=== PATIENT | female | born 1995 | race Caucasian/White ===

== ENCOUNTER → 2019-02-09 | Outpatient (CLI) | payer SELFPAY ==
--- NOTE | 2019-02-09 15:18 | RADIOLOGY REPORT (SQ) ---
EXAM DESCRIPTION: U/S OB 14+ TRNABD 1GES W/O DOP COMPLETED DATE/TIME: 02/09/2019 1:58 pm REASON FOR STUDY: Z34.02 ENCNTR FOR SUPRVSN OF NORMAL FIRST PREG, SECOND TRIMESTER Z34.02 ENCNTR FO R SUPRVSN OF NORMAL FIRST PREG, SECOND TRIME COMPARISON: None. TECHNIQUE: Static and Dynamic grayscale imaging performed of gravid uterus using transabdominal appr oach. Additional selected color Doppler and spectral images recorded. All stored on PACS. LIMITATIONS: None. FINDINGS: FETUSES SEEN:1 EGA: 26 weeks 4 days Calculated using BPD,FL,HC,AC documented on images. No discrepancy with clinica l dates. ILAN: 05/14/2019 EFW: 916 grams +/-136 grams PERCENTILE: 66% LUIZA: 5.6 cm x 11.4 cm(LVP) PLACENTA: Anterior. PRESENTATION: Cephalic. ANATOMY: HEART RATE: 152 beats per minute. FOUR CHAMBER HEART: Visualized. THREE VESSEL CORD: Yes. CORD INSERTION: Visualized. KIDNEYS AND BLADDER: Visualized. Appear normal. STOMACH: Visualized. Appears normal. SPINE: Normal as visualized. BRAIN AND LATERAL VENTRICLES: Visualized. Appear normal. OTHER: No other significant finding. MATERNAL ADNEXA: Maternal ovaries not visualized. CERVICAL LENGTH: 3.6 cm. Closed. OTHER: No other significant finding. IMPRESSION: LIVING INTRAUTERINE . ESTIMATED GESTATIONAL AGE: 26 weeks 4 days NO VISUALIZED ANOMALIES. Trimester of : Third trimester - 28 weeks to delivery. TECHNICAL DOCUMENTATION: JOB ID: [id number] [employer]- All Rights Reserved Reading location - IP/workstation name: [email or web address]
== END ==
LOC: RAD 12:42
PROVIDERS: ATTEND Midwife
DX: Z34.02 Encounter for supervision of normal first pregnancy, second trimester (principal)
CPT/HCPCS: 76805

== ENCOUNTER 2019-06-01 10:35 | Outpatient (CLI) | payer MEDICAID ==
--- NOTE | 2019-06-01 12:10 | Non Stress Test Report ---
Non Stress Test Datetime Report Generated by CPN: 06/01/2019 12:09 DEMOGRAPHIC EGA NST: 40.6 INDICATION Indication for Study (NST) Other: POST DATES VITAL SIGNS Temperature - NST: 98.3 Pulse - NST: 79 RESP - NST: 18 NBPSYS NST: 101 NBPDIA NST: 64 MONITORING Monitor Explained: Monitor Explained; Test Explained; Patient Verbalized Understanding Time on Monitor: 06/01/2019 10:45 Time off Monitor: 06/01/2019 11:31 NST Duration: 46 NST INTERVENTIONS NST Interventions: PO Hydration; Reposition Patient Physician Notified NST: K LEWIS, CNM BABY A: [id number] BABY A Movement : Present Contraction Frequency : 3.5-5.5 FHR Baseline : 125 Accelerations : 15X15 Decelerations : None Variability : Moderate 6-25bpm NST Review: Meets Criteria for Reactive NST NST Review and Verified By : Sylvester Monreal RN NST Results: Reactive NST REPORT Report Trigger: Send Report
== END 2019-06-01 11:36 | disposition home or self-care (01) ==
LOC: LC 10:35
PROVIDERS: ATTEND Obstetrics & Gynecology
PROC: 4A1HXCZ Monitoring of Products of Conception, Cardiac Rate, External Approach (ICD-10-PCS; principal; 2019-06-01)
DX: O48.0 Post-term pregnancy (principal); Z3A.40 40 weeks gestation of pregnancy
CPT/HCPCS: 59025

== ENCOUNTER 2019-06-01 19:32 | Inpatient (IN) | payer MEDICAID ==
[2019-06-01] MEDS ORDERED: RINGERS SOLUTION,LACTATED 1,000 ML IV PRN (19:47)
[2019-06-01] MEDS ORDERED: OXYTOCIN/NORMAL SALINE 20 UNIT/1,000 ML RTUINJ IV PRN (19:47)
[2019-06-01] MEDS ORDERED: RINGERS SOLUTION,LACTATED 300 ML IV ONE (19:47)
[2019-06-01] MEDS ORDERED: DINOPROSTONE 10 MG VAGINAL INSERT.SR PV PRN (19:47)
[2019-06-01] MEDS ORDERED: DINOPROSTONE 10 MG VAGINAL INSERT.SR ONE (20:18)
[2019-06-01 20:41] LABS: ABSOLUTE BASOPHILS # (AUTO) 0.1 10^3/uL (0.0-0.2); ABSOLUTE EOSINOPHILS # (AUTO) 0.1 10^3/uL (0.0-0.6); ABSOLUTE LYMPHOCYTES (AUTO) 1.7 10^3/uL (0.5-4.7); ABSOLUTE MONOCYTES (AUTO) 0.7 10^3/uL (0.1-1.4); ABSOLUTE NEUT (AUTO) 5.3 10^3/uL (1.7-8.2); BASOPHILS % (AUTO) 0.6 % (0-2); EOSINOPHILS % (AUTO) 1.3 % (0-6); HEMATOCRIT 36.7 % (36.0-47.0); HEMOGLOBIN 13.2 g/dL (12.0-15.5); LYMPHOCYTES % (AUTO) 21.9 % (13-45); MEAN CORPUSCULAR HEMOGLOBIN 33.7 pg (27.0-33.4); MEAN CORPUSCULAR VOLUME 94 fl (80-97); MONOCYTES % (AUTO) 8.6 % (3-13); PLATELET COUNT 239 10^3/uL (150-450); RED BLOOD COUNT 3.93 10^6/uL (3.72-5.28); SEGMENTED NEUTROPHILS % (AUTO) 67.6 % (42-78); TOTAL CELLS COUNTED % (AUTO) 100 %; WHITE BLOOD COUNT 7.8 10^3/uL (4.0-10.5)
[2019-06-01 20:46] LABS: APPEARANCE,URINE CLEAR; BILIRUBIN,URINE NEGATIVE (NEGATIVE); COLOR,URINE STRAW; GLUCOSE, URINE NEGATIVE (NEGATIVE); KETONES,URINE NEGATIVE (NEGATIVE); LEUKOCYTE ESTERASE,URINE SMALL (NEGATIVE); NITRITE,URINE NEGATIVE (NEGATIVE); PROTEIN,URINE NEGATIVE (NEGATIVE); URINE SPECIFIC GRAVITY 1.005; UROBILINOGEN,URINE NEGATIVE mg/dL (<2.0)
[2019-06-01] MEDS ORDERED: OXYTOCIN/NORMAL SALINE 20 UNIT/1,000 ML RTUINJ ONE (20:55)
[2019-06-01] MEDS ORDERED: OXYTOCIN 10 UNIT/ML VIAL ONE (20:55)
[2019-06-01] MEDS ORDERED: LIDOCAINE 1% INJ-PF (10 MG/ML) 30 ML SDV ONE (20:55)
[2019-06-01] MEDS ORDERED: MISOPROSTOL 0.2 MG TABLET ONE (20:55)
[2019-06-01 21:04] LABS: URINE AMPHETAMINES SCREEN NEGATIVE; URINE BARBITURATES SCREEN NEGATIVE; URINE BENZODIAZEPINES SCREEN NEGATIVE; URINE COCAINE SCREEN NEGATIVE; URINE MARIJUANA (THC) SCREEN NEGATIVE; URINE METHADONE SCREEN NEGATIVE; URINE PHENCYCLIDINE SCREEN NEGATIVE
--- NOTE | 2019-06-02 07:10 | Admission Physical ---
Datetime Report Generated by CPN: 06/02/2019 07:10 CURRENT ADMISSION Chief Complaint: Scheduled Induction of Labor Indication for Induction: Post Dates Admit Impression : Term, Intrauterine ; Induction of Labor Admit Plan: Admit to Unit; Initiate Labor Induction Protocol ALLERGIES Medication Allergies: No Medication Allergies: No Known Allergies (06/01/2019) Latex: No Latex Allergies OBSTETRICAL HISTORY EDC: 05/26/2019 00:00 : 1 Para: 0 Cesareans: 0 Gestational Diabetes: No Rh Sensitization: No Incompetent Cervix: No MARLIN: No Infertility: No ART Treatment: No Uterine Anomaly: No IUGR: No Hx Previous C/S: No Macrosomia: No Hx Loss/Stillborn: No PIH: No Hx : No Placenta Previa/Abruption: No Depression/PP Depression: Yes PTL/PROM: No Post Hemorrhage: No Current Procedures: Ultrasound; NST Obstetrical History Comments: G1- current SEE RECORDS Alcohol: No Marijuana : No Cocaine: No Other Illicit Drugs: No Cigarettes: Former Smoker. [id number] MEDICAL HISTORY Diabetes: No Blood Transfusion: No Pulmonary Disease (Asthma, TB): No Breast Disease: No Hypertension: No Pleater Surgery: No Heart Disease: No Hosp/Surgery: No Autoimmune Disorder: No Anesthetic Complications: No Kidney Disease: Yes Abnormal Pap Smear: No Neuro/Epilepsy: No Psychiatric Disorders: No Other Medical Diseases: No Hepatitis/Liver Disease: No Significant Family History: No Varicosities/Phlebitis: No Trauma/Violence : No Thyroid Dysfunction: No Medical History Comments: UTI in childhood, anxiety INFECTIOUS HISTORY Gonorrhea: No Genital Herpes: No Chlamydia: No Tuberculosis: No Syphilis: No Hepatitis: No HIV/AIDS Exposure: No Rash or Viral Illness: No HPV: No PHYSICAL EXAM General: Normal HEENT: Normal Neurologic: Normal Thyroid: Normal Heart: Normal Lungs: Normal Breast: Normal Back: Normal Abdomen: Normal Genitourinary Exam: Normal Extremities: Normal DTRs: Normal Pelvic Type: Adequate Vital Signs: Reviewed; Within Normal Limits VAGINAL EXAM Dilatation: 0 Effacement: 0 Station: -3 FETUS A EGA: 41.0 Monitoring: External US FHR- Baseline: 130 Variability: Moderate 6-25bpm Accelerations: 15X15 Decelerations: None FHR Category: Category I Estimated Weight (gm): 3700 Presentation: Vertex PLANS FOR LABOR AND DELIVERY Labor and Delivery: None Pain Management: Medications Feeding Preference: Breast Benefit of Breast Feed Discussed: Yes Circumcision: N/A INFORMED CONSENT Signature: with User ID: [email or web address]
[2019-06-02] MEDS ORDERED: OXYTOCIN/NORMAL SALINE 20 UNIT/1,000 ML RTUINJ IV PRN (10:14)
[2019-06-02] MEDS ORDERED: FENTANYL/BUPIVACAINE/NS/PF 300 MCG/150 ML RTUINJ EPI ONE (22:56)
[2019-06-02] MEDS ORDERED: EPHEDRINE SULFATE INJ 50 MG/1 ML AMPULE ONE (22:56)
[2019-06-02] MEDS ORDERED: BUPIVACAINE HCL 0.25 % INJ/PF (2.5 MG/1 ML) 30 ML VIAL ONE (22:57)
[2019-06-03] MEDS ORDERED: MEASLES,MUMPS&RUBELLA VACC/PF 0.5 ML VIAL SUBCUT PRN (04:18)
[2019-06-03] MEDS ORDERED: ZOLPIDEM TARTRATE 5 MG TABLET PO PRN (04:18)
[2019-06-03] MEDS ORDERED: PROMETHAZINE HCL 25 MG SUPP.RECT PR PRN (04:18)
[2019-06-03] MEDS ORDERED: DIPH/PERTUSS(ACELL)/TETANUS VAC/PF 0.5 ML SYR (>=10YO) IM PRN (04:18)
[2019-06-03] MEDS ORDERED: ACETAMINOPHEN 650 MG SUPP.RECT PR PRN (04:18)
[2019-06-03] MEDS ORDERED: GLYCERIN/WITCH HAZEL LEAF 1 EACH MED..WIPE TP PRN (04:18)
[2019-06-03] MEDS ORDERED: PROMETHAZINE HCL 25 MG TABLET PO PRN (04:18)
[2019-06-03] MEDS ORDERED: PSEUDOEPHEDRINE HCL 30 MG TABLET PO PRN (04:18)
[2019-06-03] MEDS ORDERED: DIBUCAINE 1% OINTMENT 28 GM TP PRN (04:18)
[2019-06-03] MEDS ORDERED: PROMETHAZINE HCL INJ 25 MG/1 ML VIAL IV PRN (04:18)
[2019-06-03] MEDS ORDERED: MAGNESIUM HYDROXIDE SUSP 30 ML UDCUP PO PRN (04:18)
[2019-06-03] MEDS ORDERED: DIPHENHYDRAMINE HCL 25 MG CAPSULE PO PRN (04:18)
[2019-06-03] MEDS ORDERED: OXYTOCIN/NORMAL SALINE 20 UNIT/1,000 ML RTUINJ IV PRN (04:18)
[2019-06-03] MEDS ORDERED: ACETAMINOPHEN WITH CODEINE #3 TABLET PO PRN ×2 (04:18)
[2019-06-03] MEDS ORDERED: NA PHOS,M-B/NA PHOS,DI-BA (ADULT) 133 ML ENEMA PR PRN (04:18)
[2019-06-03] MEDS ORDERED: BENZOCAINE/MENTHOL AEROSOL SPRAY 56 ML ONE (04:51)
[2019-06-03] MEDS ORDERED: IBUPROFEN 800 MG TABLET ONE (05:18)
[2019-06-03] MEDS: BENZOCAINE/MENTHOL AEROSOL SPRAY 56 ML TOP PRN (05:20)
[2019-06-03] MEDS: IBUPROFEN 800 MG TABLET PO SCH ×3 (05:21→21:37)
[2019-06-03] MEDS ORDERED: FAMOTIDINE 20 MG TABLET ONE (09:19)
[2019-06-03] MEDS ORDERED: PRENATAL VITAMIN W DHA CAPSULE PO ONE (09:19)
[2019-06-03] MEDS ORDERED: SENNOSIDES/DOCUSATE 8.6-50 MG 1 EACH TABLET ONE (09:19)
[2019-06-03] MEDS ORDERED: DOCUSATE SODIUM 100 MG CAPSULE ONE (09:20)
[2019-06-03] MEDS ORDERED: FERROUS SULFATE 325 MG TABLET PO ONE (09:20)
[2019-06-03] MEDS: PRENATAL VITAMIN W DHA CAPSULE PO SCH (09:21)
[2019-06-03] MEDS: SENNOSIDES/DOCUSATE 8.6-50 MG 1 EACH TABLET PO SCH (09:21)
[2019-06-03] MEDS: DOCUSATE SODIUM 100 MG CAPSULE PO SCH ×2 (09:22→17:23)
[2019-06-03] MEDS: FERROUS SULFATE 325 MG TABLET PO SCH ×2 (09:22→17:23)
[2019-06-03] MEDS: FAMOTIDINE 20 MG TABLET PO SCH ×2 (09:22→21:37)
[2019-06-04] MEDS: IBUPROFEN 800 MG TABLET PO SCH ×3 (05:07→21:39)
[2019-06-04 06:47] LABS: HEMATOCRIT 29.7 % (36.0-47.0); MEAN CORPUSCULAR HEMOGLOBIN 33.7 pg (27.0-33.4); MEAN CORPUSCULAR HGB CONC 35.8 g/dL (32.0-36.0); MEAN CORPUSCULAR VOLUME 94 fl (80-97); PLATELET COUNT 152 10^3/uL (150-450); RED BLOOD COUNT 3.16 10^6/uL (3.72-5.28); WHITE BLOOD COUNT 9.4 10^3/uL (4.0-10.5)
[2019-06-04 06:49] LABS: HEMOGLOBIN 10.6 g/dL (12.0-15.5)
[2019-06-04] MEDS: FAMOTIDINE 20 MG TABLET PO SCH ×2 (09:34→21:40)
[2019-06-04] MEDS: FERROUS SULFATE 325 MG TABLET PO SCH ×2 (09:34→17:56)
[2019-06-04] MEDS: SENNOSIDES/DOCUSATE 8.6-50 MG 1 EACH TABLET PO SCH (09:34)
[2019-06-04] MEDS: PRENATAL VITAMIN W DHA CAPSULE PO SCH (09:35)
[2019-06-04] MEDS: DOCUSATE SODIUM 100 MG CAPSULE PO SCH ×2 (09:35→17:56)
--- NOTE | 2019-06-04 11:31 | PDOC PROGRESS REPORT ---
Subjective-OB Progress Note for:: 06/04/19 - PP day #1, doing well, O+, rubella Immune, Physical Exam (OB) Vital Signs: Temp Pulse Resp BP Pulse Ox 97.6 F 75 16 105/54 L 99 06/04/19 07:49 06/04/19 07:49 06/04/19 07:49 06/04/19 07:49 06/04/19 07:49 Intake & Output 06/03/19 06/04/19 06/05/19 06:59 06:59 06:59 Intake Total 480 Balance 480 - General General Appearance: Appears well, Alert In distress: None - Lochia Lochia Amount: Scant < 10 ml Lochia Color: Rubra/Red - Abdomen Description: Soft Fundal Description: Firm, Midline Fundal Height: u/u - u/2 - Respiratory Respiratory Status: No respiratory distress - Abdominal Inspection: Normal Distension: No distension Tenderness: Nontender - Genitourinary Genitourinary Note: voiding - Psychological Associated symptoms: Normal affect, Normal mood - Skin Skin Temperature: Warm Skin Moisture: Dry Objective-Diagnostic Laboratory: 06/04/19 06:32 06/04/19 06:32 WBC 9.4 RBC 3.16 L Hgb 10.6 L D Hct 29.7 L MCV 94 MCH 33.7 H MCHC 35.8 RDW 14.0 Plt Count 152 Assessment and Plan(PN) - Assessment and Plan (1) (normal spontaneous vaginal delivery) Is this a current diagnosis for this admission?: Yes - Time Spent with Patient Time with patient: Less than 15 minutes Medications reviewed and adjusted accordingly: Yes - Disposition Anticipated Discharge: Home Within: within 24 hours
[2019-06-05] MEDS: IBUPROFEN 800 MG TABLET PO SCH ×2 (06:52→13:58)
--- NOTE | 2019-06-05 10:22 | PDOC DISCHARGE SUMMARY ---
Impression - Admit/DC Date/PCP Admission Date/Primary Care Provider: 06/01/19 19:32 JORGITO LARA MD Discharge Date: 06/05/19 - PP Day #2, doing well, O+. Rubella Immune, - Discharge Diagnosis (1) (normal spontaneous vaginal delivery) Is this a current diagnosis for this admission?: Yes - Additional Information Resuscitation Status: Full Code Discharge Diet: As Tolerated, Regular Discharge Activity: Activity As Tolerated, No Lifting Over 10 Pounds, Pelvic Rest Referrals: JORGITO LARA MD [Primary Care Provider] - Prescriptions: Ibuprofen [Motrin 800 mg Tablet] 800 mg PO Q8 #60 tablet Home Medications: Ferrous Sulfate [Feosol 325 mg Tablet] 1 tab PO DAILY 06/01/19 No122/Iron/Folic Acid [ Multi Tablet] 1 tab PO DAILY 06/01/19 Ibuprofen [Motrin 800 mg Tablet] 800 mg PO Q8 #60 tablet 06/05/19 HPI Reason(s) for Admission: Onset of Labor Procedures: Ultrasound Intrapartum Procedure(s): Spontaneous Vaginal Delivery Complication(s): Laceration-Perineal Laceration-Degree: 1st Results Laboratory Results: WBC 9.4 10^3/uL (4.0-10.5) 06/04/19 06:32 RBC 3.16 10^6/uL (3.72-5.28) L 06/04/19 06:32 Hgb 10.6 g/dL (12.0-15.5) L D 06/04/19 06:32 Hct 29.7 % (36.0-47.0) L 06/04/19 06:32 MCV 94 fl (80-97) 06/04/19 06:32 MCH 33.7 pg (27.0-33.4) H 06/04/19 06:32 MCHC 35.8 g/dL (32.0-36.0) 06/04/19 06:32 RDW 14.0 % (11.5-14.0) 06/04/19 06:32 Plt Count 152 10^3/uL (150-450) 06/04/19 06:32 Lymph % (Auto) 21.9 % (13-45) 06/01/19 20:12 [place] % (Auto) 8.6 % (3-13) 02/11/20 20:12 Eos % (Auto) 1.3 % (0-6) 06/01/19 20:12 Baso % (Auto) 0.6 % (0-2) 06/01/19 20:12 Absolute Neuts (auto) 5.3 10^3/uL (1.7-8.2) 06/01/19 20:12 Absolute Lymphs (auto) 1.7 10^3/uL (0.5-4.7) 06/01/19 20:12 Absolute Monos (auto) 0.7 10^3/uL (0.1-1.4) 06/01/19 20:12 Absolute Eos (auto) 0.1 10^3/uL (0.0-0.6) 06/01/19 20:12 Absolute Basos (auto) 0.1 10^3/uL (0.0-0.2) 06/01/19 20:12 Seg Neutrophils % 67.6 % (42-78) 06/01/19 20:12 Urine Color STRAW 06/01/19 19:55 Urine Appearance CLEAR 06/01/19 19:55 Urine pH 7.0 (5.0-9.0) 06/01/19 19:55 Ur Specific [place] 1.005 06/01/19 19:55 Urine Protein NEGATIVE mg/dL (NEGATIVE) 06/01/19 19:55 Urine Glucose (UA) NEGATIVE mg/dL (NEGATIVE) 06/01/19 19:55 Urine Ketones NEGATIVE mg/dL (NEGATIVE) 06/01/19 19:55 Urine Blood NEGATIVE (NEGATIVE) 06/01/19 19:55 Urine Nitrite NEGATIVE (NEGATIVE) 06/01/19 19:55 Urine Bilirubin NEGATIVE (NEGATIVE) 06/01/19 19:55 Urine Urobilinogen NEGATIVE mg/dL (<2.0) 06/01/19 19:55 Ur Leukocyte Esterase SMALL (NEGATIVE) H 06/01/19 19:55 Urine Ascorbic Acid 20 (NEGATIVE) H 06/01/19 19:55 Urine Opiates Screen NEGATIVE 06/01/19 19:55 Urine Methadone Screen NEGATIVE 06/01/19 19:55 Ur Barbiturates Screen NEGATIVE 06/01/19 19:55 Ur Phencyclidine Scrn NEGATIVE 06/01/19 19:55 Ur Amphetamines Screen NEGATIVE 06/01/19 19:55 U Benzodiazepines Scrn NEGATIVE 06/01/19 19:55 Urine Cocaine Screen NEGATIVE 06/01/19 19:55 U Marijuana (THC) Screen NEGATIVE 06/01/19 19:55 RPR NONREACTIVE (NONREACTIVE) 06/01/19 20:12 Blood Type O POSITIVE 06/01/19 20:12 Antibody Screen NEGATIVE 06/01/19 20:12 Plan Plan of Treatment: d/c home, f/up with [facility] in 4 wks Time Spent: Less than 30 Minutes
[2019-06-05] MEDS: PRENATAL VITAMIN W DHA CAPSULE PO SCH (10:23)
[2019-06-05] MEDS: FERROUS SULFATE 325 MG TABLET PO SCH (10:23)
[2019-06-05] MEDS: SENNOSIDES/DOCUSATE 8.6-50 MG 1 EACH TABLET PO SCH (10:23)
[2019-06-05] MEDS: DOCUSATE SODIUM 100 MG CAPSULE PO SCH (10:23)
[2019-06-05] MEDS: FAMOTIDINE 20 MG TABLET PO SCH (10:24)
[2019-06-05 12:58] VITALS: BP 121/78
[2019-06-05] MEDS: BENZOCAINE/MENTHOL AEROSOL SPRAY 56 ML TOP PRN (14:04)
--- NOTE | 2019-06-08 13:12 | Delivery Summary ---
Del Sum A-C Datetime Report Generated by CPN: 06/08/2019 13:11 DELIVERY PERSONNEL DELIVERY PERSONNEL: [id number] Delivery Doctor:: Sandhya Woodard MD Labor and Delivery Nurse:: Fartun Bond RNroad mender Nurse:: Ciaran Bell RN Board Saw Runner:: Kezia Koo RN Automotive Finance Manager/SAFEMAKER: Eva Ross, ST MATERNAL INFORMATION Delivery Anesthesia: Epidural Medications After Delivery: Pitocin Bolus-Please Comment; Pitocin Drip 20 Units/1000ml NSS Meds After Delivery Comment: Pitocin 20 Units/1000 ml NSS Delivery QBL: 150 Delivery QBL Comment: del 150 rec 78 total 228 Maternal Complications: None Provider Comments: Called to patients room with her pushing. She delivered a viable female . The head delivered BA and then a nuchal x1 was noted. It was too tight to reduce and decision was made to deliver through. The shoulders and rest of the body delivered easily. vigorous at delivery. Cord clamping delayed for 30 seconds. After cord doubly cut and clamped the infant was placed skin to skin with Mother. BOth stable condition. LABOR SUMMARY EDC: 05/26/2019 00:00 No. Babies in Womb: 1 Attempted: No Labor Anesthesia: Epidural LABOR INFORMATION Reason for Induction: Post Dates Onset of Labor: 06/02/2019 22:47 Complete Dilatation: 06/03/2019 02:11 Cervical Ripening Agents: Cervidil Oxytocin: Induction Group B Beta Strep: negative Antibiotics # of Doses: 0 Steroids Given: None Reason Steroids Not Administered: Not Applicable MEMBRANES Membranes Rupture Method: Spontaneous Rupture of Membranes: 06/02/2019 22:47 Length of Rupture (hr): 5.00 Amniotic Fluid Color: Clear Amniotic Fluid Amount: Small Amniotic Fluid Odor: Normal STAGES OF LABOR Stage 1 hr: 3 Stage 1 min: 24 Stage 2 hr: 1 Stage 2 min: 36 Stage 3 hr: 0 Stage 3 min: 5 Total Time in Labor hr: 5 Total Time in Labor min: 5 VAGINAL DELIVERY Episiotomy: None Laceration #1: Perineal Laceration Extension #1: First Degree Other Laceration: bilateral labial lacerations which were 1st degrees Laceration Repair: Yes Laceration Repair Note: Repairs done with 3-0 chromic in a running fashion Sponge Count Correct: Yes Sharps Count Correct: Yes CSECTION DELIVERY Primary Indication: N/A Secondary Indication: N/A CSection Incidence: N/A Labor: N/A Elective: N/A CSection Incision: N/A BABY A INFORMATION Infant Delivery Date/Time: 06/03/2019 03:47 Method of Delivery: Vaginal Method of Delivery: Vaginal Nurse Controlled Delivery: No Born in Route : No : N/A Forceps: N/A Vacuum Extraction: N/A Shoulder Dystocia : No PRESENTATION/POSITION BABY A Presentation: Cephalic Cephalic Presentation: Vertex Vertex Position: Left Occipital Anterior Breech Presentation: N/A PLACENTA INFORMATION BABY A Placenta Delivery Time : 06/03/2019 03:52 Placenta Method of Delivery: Spontaneous Placenta Method of Delivery: Spontaneous Placenta Status: Delivered SCORES BABY A Heart Rate 1 min: >100 bpm Resp Effort 1 min: Good Cry Reflex Irritability 1 min: Cough or Sneeze or Pulls Away Muscle Tone 1 min: Active Motion Color 1 min: Blue/Pale Resuscitation Effort 1 min: Tactile Stimulation SCORE 1 MIN: 8 Heart Rate 5 min: >100 bpm Resp Effort 5 min: Good Cry Reflex Irritability 5 min: Cough or Sneeze or Pulls Away Muscle Tone 5 min: Active Motion Color 5 min: Body [place], Extremities Blue Resuscitation Effort 5 min: Tactile Stimulation SCORE 5 MIN: 9 INFANT INFORMATION BABY A Gestational Age at Delivery: 41.1 Gestational Status: Late Term- 41- 41.6 Weeks Outcome : Liveborn Infant Condition : Stable Infant Sex: Female Infant Sex: Female IDENTIFICATION BABY A Infant Verification Date/Time: 06/03/2019 04:09 ID Band Number: [id number] Mother's Name Verified: Yes RN Verifying : Raghavendra Bell, RN Additional Verifying Personnel: S NAVA Bond WEIGHT/LENGTH BABY A Infant Birthweight (gm): 3759 Infant Weight (lb): 8 Weight (oz): 5 Length (in): 21.50 Infant Length (cm): 54.61 CORD INFORMATION BABY A No. Cord Vessels: 3 Nuchal Cord : Around Neck x1, Tight Cord Blood Taken: Yes-For Eval (Mom's Blood Type - or O+) Infant Suction: Mouth ASSESSMENT BABY A Infant Complications: Multiple Variable Decels Physical Findings at Delivery: Caput Succedaneum Infant Respirations: Appears Normal Skin to Skin: Yes Skin to Skin Time (min): 60 University Professor/ALS Called : No Infant Care By: NAVA Morales Transferred To: Remains with Mother BABY B INFORMATION : N/A SIGNATURES Signature: with User ID: [email or web address] : with User ID: [email or web address]
--- NOTE | 2019-06-08 14:55 | Delivery Summary ---
Del Sum A-C Datetime Report Generated by CPN: 06/08/2019 14:54 DELIVERY PERSONNEL DELIVERY PERSONNEL: [id number] Delivery Doctor:: Sandhya Woodard MD Labor and Delivery Nurse:: Fartun Bond RNdigital technician Nurse:: Ciaran Bell RN Rolls Baker:: Kezia Koo RN Die Repairer Stamping/ACTING TEACHER: Eva Ross, ST MATERNAL INFORMATION Delivery Anesthesia: Epidural Medications After Delivery: Pitocin Bolus-Please Comment; Pitocin Drip 20 Units/1000ml NSS Meds After Delivery Comment: Pitocin 20 Units/1000 ml NSS Delivery QBL: 150 Delivery QBL Comment: del 150 rec 78 total 228 Maternal Complications: None Provider Comments: Called to patients room with her pushing. She delivered a viable female . The head delivered BA and then a nuchal x1 was noted. It was too tight to reduce and decision was made to deliver through. The shoulders and rest of the body delivered easily. vigorous at delivery. Cord clamping delayed for 30 seconds. After cord doubly cut and clamped the infant was placed skin to skin with Mother. BOth stable condition. LABOR SUMMARY EDC: 05/26/2019 00:00 No. Babies in Womb: 1 Attempted: No Labor Anesthesia: Epidural LABOR INFORMATION Reason for Induction: Post Dates Onset of Labor: 06/02/2019 22:47 Complete Dilatation: 06/03/2019 02:11 Cervical Ripening Agents: Cervidil Oxytocin: Induction Group B Beta Strep: negative Antibiotics # of Doses: 0 Steroids Given: None Reason Steroids Not Administered: Not Applicable MEMBRANES Membranes Rupture Method: Spontaneous Rupture of Membranes: 06/02/2019 22:47 Length of Rupture (hr): 5.00 Amniotic Fluid Color: Clear Amniotic Fluid Amount: Small Amniotic Fluid Odor: Normal STAGES OF LABOR Stage 1 hr: 3 Stage 1 min: 24 Stage 2 hr: 1 Stage 2 min: 36 Stage 3 hr: 0 Stage 3 min: 5 Total Time in Labor hr: 5 Total Time in Labor min: 5 VAGINAL DELIVERY Episiotomy: None Laceration #1: Perineal Laceration Extension #1: First Degree Other Laceration: bilateral labial lacerations which were 1st degrees Laceration Repair: Yes Laceration Repair Note: Repairs done with 3-0 chromic in a running fashion Sponge Count Correct: Yes Sharps Count Correct: Yes CSECTION DELIVERY Primary Indication: N/A Secondary Indication: N/A CSection Incidence: N/A Labor: N/A Elective: N/A CSection Incision: N/A BABY A INFORMATION Infant Delivery Date/Time: 06/03/2019 03:47 Method of Delivery: Vaginal Method of Delivery: Vaginal Nurse Controlled Delivery: No Born in Route : No : N/A Forceps: N/A Vacuum Extraction: N/A Shoulder Dystocia : No PRESENTATION/POSITION BABY A Presentation: Cephalic Cephalic Presentation: Vertex Vertex Position: Left Occipital Anterior Breech Presentation: N/A PLACENTA INFORMATION BABY A Placenta Delivery Time : 06/03/2019 03:52 Placenta Method of Delivery: Spontaneous Placenta Method of Delivery: Spontaneous Placenta Status: Delivered SCORES BABY A Heart Rate 1 min: >100 bpm Resp Effort 1 min: Good Cry Reflex Irritability 1 min: Cough or Sneeze or Pulls Away Muscle Tone 1 min: Active Motion Color 1 min: Blue/Pale Resuscitation Effort 1 min: Tactile Stimulation SCORE 1 MIN: 8 Heart Rate 5 min: >100 bpm Resp Effort 5 min: Good Cry Reflex Irritability 5 min: Cough or Sneeze or Pulls Away Muscle Tone 5 min: Active Motion Color 5 min: Body [place], Extremities Blue Resuscitation Effort 5 min: Tactile Stimulation SCORE 5 MIN: 9 INFANT INFORMATION BABY A Gestational Age at Delivery: 41.1 Gestational Status: Late Term- 41- 41.6 Weeks Outcome : Liveborn Infant Condition : Stable Infant Sex: Female Infant Sex: Female IDENTIFICATION BABY A Infant Verification Date/Time: 06/03/2019 04:09 ID Band Number: [id number] Mother's Name Verified: Yes RN Verifying : Raghavendra Bell, RN Additional Verifying Personnel: S NAVA Bond WEIGHT/LENGTH BABY A Infant Birthweight (gm): 3759 Infant Weight (lb): 8 Weight (oz): 5 Length (in): 21.50 Infant Length (cm): 54.61 CORD INFORMATION BABY A No. Cord Vessels: 3 Nuchal Cord : Around Neck x1, Tight Cord Blood Taken: Yes-For Eval (Mom's Blood Type - or O+) Infant Suction: Mouth ASSESSMENT BABY A Infant Complications: Multiple Variable Decels Physical Findings at Delivery: Caput Succedaneum Infant Respirations: Appears Normal Skin to Skin: Yes Skin to Skin Time (min): 60 Telecom Coordinator/ALS Called : No Infant Care By: NAVA Morales Transferred To: Remains with Mother BABY B INFORMATION : N/A SIGNATURES Signature: with User ID: [email or web address] : with User ID: [email or web address]
== END 2019-06-05 14:20 | disposition home or self-care (01) | DRG 807 ==
LOC: LR 19:32 → 2S 06-03 11:29
PROVIDERS: ADMIT Obstetrics & Gynecology; ATTEND Obstetrics & Gynecology
PROC: 10E0XZZ Delivery of Products of Conception, External Approach (ICD-10-PCS; principal; 2019-06-03)
PROC: 0HQ9XZZ Repair Perineum Skin, External Approach (ICD-10-PCS; 2019-06-03)
DX: O48.0 Post-term pregnancy (principal); Z37.0 Single live birth; O69.1XX0 Labor and delivery complicated by cord around neck, with compression, not applicable or unspecified; Z3A.41 41 weeks gestation of pregnancy; O76 Abnormality in fetal heart rate and rhythm complicating labor and delivery; O99.334 Smoking (tobacco) complicating childbirth; O70.0 First degree perineal laceration during delivery; F17.210 Nicotine dependence, cigarettes, uncomplicated
CPT/HCPCS: 36415; 80307; 81005; 85025; 85027; 86592; 86850; 86900; 86901; 94760; C1758; J2590; J3010; J3490